=== PATIENT | female | born 1990 | race Caucasian/White ===

== ENCOUNTER 2020-09-25 09:24 | Observation (INO) | payer OTHER ==
[~2020-09-25] VITALS: Ht 157.5 cm; Wt 65.9 kg
[2020-09-25] VITALS (7 sets, daily range): BP systolic 96–105; BP diastolic 55–60
[2020-09-25] MEDS ORDERED: fentaNYL PF VIAL 100 MCG/2 ML VIAL IVP ONE ×2 (10:00→13:00)
[2020-09-25] MEDS ORDERED: IV NORMAL SALINE 1000ML BAG 1,000 ML IV SCH (10:00)
[2020-09-25] MEDS ORDERED: ONDANSETRON PF 4 MG/2 ML VIAL. IVP ONE (10:00)
--- NOTE | 2020-09-25 10:15 | PHYS DOC ---
Past Medical History Additional Past Medical Histor: HEART SHAPED UTERUS (JOSE DA SILVA TELEVISION PRODUCTION CLERK) Past Surgical History: Other Additional Past Surgical Histo: D & C, AT AGE 15 (JOSE DA SILVA TELEVISION PRODUCTION CLERK) General Adult EDM: Chief Complaint: ABDOMINAL PAIN HPI: HPI: Patient is a 30 year old female who presents with right lower quadrant sharp pain with vaginal spotting for the last couple days. She had a positive test over the weekend. Last menstrual period was August 21. She took ibuprofen yesterday and this morning to help with pain. Patient has a history of a tubal , at the age of 15, D&Cs. Miscarriage. She is on her fifth . She has 1 living child. She also has a history of a heart-shaped uterus. Denies any concerns for sexually transmitted diseases. Denies any unusual vaginal discharge besides her vaginal spotting. Patient recently moved here from [place]. Rating her pain a 10 out of 10 in her right lower quadrant. Denies urinary symptoms, concern for sexually transmitted disease, chest pain, shortness of breath, fever, constipation, diarrhea. (JOSE DA SILVA TELEVISION PRODUCTION CLERK) Review of Systems: Review of Systems: Constitutional: Denies fever or chills. [] Eyes: Denies change in visual acuity. [] HENT: Denies nasal congestion or sore throat. [] Respiratory: Denies cough or shortness of breath. [] Cardiovascular: Denies chest pain or edema. [] GI: + abdominal pain, +nausea, +vomiting, denies bloody stools or diarrhea. [] : Denies dysuria. +vaginal bleeding[] Musculoskeletal: Denies back pain or joint pain. [] Integument: Denies rash. [] Neurologic: Denies headache, focal weakness or sensory changes. [] Endocrine: Denies polyuria or polydipsia. [] Lymphatic: Denies swollen glands. [] Psychiatric: Denies depression or anxiety. [] (JOSE DA SILVA TELEVISION PRODUCTION CLERK) Heart Score: C/O Chest Pain: No Risk Factors: Risk Factors: DM, Current or recent (<one month) smoker, HTN, HLP, family history of CAD, obesity. Risk Scores: Score 0 - 3: 2.5% MACE over next 6 weeks - Discharge Home Score 4 - 6: 20.3% MACE over next 6 weeks - Admit for Clinical Observation Score 7 - 10: 72.7% MACE over next 6 weeks - Early Invasive Strategies (JOSE DA SILVA APRN) Current Medications: Current Medications Medications (Trade) Dose Ordered Sig/Priscila Start Time Stop Time Status Last Admin Dose Admin Fentanyl Citrate (Fentanyl 2ml Vial) 50 mcg 1X ONCE 09/25/20 10:00 09/25/20 10:01 DC Ondansetron HCl (Zofran) 4 mg 1X ONCE 09/25/20 10:00 09/25/20 10:01 DC Sodium Chloride 1,000 ml @ 1,000 mls/hr Q1H 09/25/20 10:00 09/25/20 10:59 (JOSE DA SILVA APRN) Allergies: Allergies: Allergies Coded Allergies Type Severity Reaction Last Updated Verified No Known Drug Allergies 09/25/20 No (JOSE DA SILVA APRN) Physical Exam: PE: Constitutional: Well developed, well nourished, no acute distress, non-toxic appearance. [] HENT: Normocephalic, atraumatic, bilateral external ears normal, oropharynx moist, no oral exudates, nose normal. [] Eyes: PERRLA, EOMI, conjunctiva normal, no discharge. [] Neck: Normal range of motion, no tenderness, supple, no stridor. [] Cardiovascular:Heart rate regular rhythm, no murmur [] Lungs & Thorax: Bilateral breath sounds clear to auscultation [] Abdomen: Bowel sounds normal, soft, right lower tenderness, no masses, no pulsatile masses. [] Skin: Warm, dry, no erythema, no rash. [] Back: No tenderness, no CVA tenderness. [] Extremities: No tenderness, no cyanosis, no clubbing, ROM intact, no edema. [] Neurologic: Alert and oriented X 3, normal motor function, normal sensory function, no focal deficits noted. [] Psychologic: Affect normal, judgement normal, mood normal. [] (JOSE DA SILVA APRN) Current Patient Data: Labs: Laboratory Tests Test 09/25/20 09:43 POC Urine HCG, Qualitative Hcg positive (Negative) Vital Signs: Vital Signs Date Time Temp Pulse Resp B/P (MAP) Pulse Ox O2 Delivery O2 Flow Rate FiO2 09/25/20 09:40 98.2 94 20 117/64 99 Room Air 98.2 (JOSE DA SILVA APRN) EKG: EKG: [] (JOSE DA SILVA APRN) Radiology/Procedures: Radiology/Procedures: [] Impression: [facility] [address] [place] [address] IMAGING REPORT Signed PATIENT: YANA MOELLER AACCOUNT: [id number] : 1990 LOCATION: ER AGE: 30 SEX: F EXAM STATUS: REG ER ORD. PHYSICIAN: JOSE DA SILVA APRN REASON: RLQ PAIN WITH +PREG TEST. HX TUBAL PROCEDURE: OB <14 WKS W/TV US OB <14 WKS +TV History: Reason: RLQ PAIN WITH +PREG TEST. HX TUBAL Comparison: None. Technique: Sonographic examination of the pelvis was performed with transabdominal and transvaginal technique. Findings: The uterus is normal in size and echogenicity, measuring 9.0 x 6.1 x 3.8 cm. The endometrial stripe measures 1.5 cm and there is no intrauterine gestational sac identified. The cervix is closed. There is a small nabothian cyst. The right ovary is normal in size and echogenicity, measuring 2.2 x 1.8 x 1.9 cm. Adjacent to the right ovary there is a mixed echogenicity 1.8 x 1.8 x 1.6 cm collection with some peripheral color Doppler flow. The left ovary is normal in size and echogenicity, measuring 3.3 x 1 2.0 x 3.2 cm. There is a small amount of simple free fluid in the pelvic cul-de-sac. Impression: Heterogeneous mixed echogenicity mass adjacent to the right ovary measuring 1.8 cm, concerning for ectopic in the setting of positive test and no identifiable intrauterine gestation. Electronically signed by: Carlos Farris MD (09/25/2020 11:05 AM) [id number] DICTATED and SIGNED BY: CARLOS FARRIS MD DATE: 09/25/20 [id number] (JOSE DA SILVA APRN) Course & Med Decision Making: Course & Med Decision Making Pertinent Labs and Imaging studies reviewed. (See chart for details) See HPI. Alert and oriented x4. Ambulatory with steady gait. Speaks in full clear sentences. Skin pink warm and dry. Vital signs within normal limits. Scant vaginal bleeding on pelvic exam. Right lower quadrant pain but there is no rebound pain but there is tenderness with palpation. Abdomen otherwise soft and nontender. Pelvic Exam: Central Station Operator present Abdomen: Right lower quadrant External Genitalia: Normal Skin Speculum: Normal vaginal mucosa, normal cervical discharge. Scant vaginal bleeding Bimanual: No adnexal masses or tenderness, No CMT US is suggestive of a Ectopic . I have called Dr Lester and he is coming to see the patient. She is admitted to Dr Lester. [] (JOSE DA SILVA APRN) Course & Med Decision Making I oversaw on the above date of service of this patient. This patient was evaluated, examined, treated, and dispositioned from the emergency department by the mid-level practitioner. I directed care of patient and advised OBGYN consult and admission. I reviewed note and agree to findings, plan of care, and disposition as stated. Critical Care Time This patient required critical care. Due to the fact that the patient required a significant amount of one on one physician - patient contact time, ordering and review of studies, arranging urgent treatment with development of a management plan, evaluation of patients response to treatment with frequent reassessments, and discussions with other providers this patient required 35 minutes of critical care time. Critical care time was indicated due to the inherent instability and/or potential for instability in this patient. The critical care time that is allocated to this patient is above and beyond any time spent on any other billable procedures performed on this patient. Electronically signed, Arielle Diaz DO (ARIELLE DIAZ DO) Ella Disclaimer: Ella Disclaimer: This electronic medical record was generated, in whole or in part, using a voice recognition dictation system. (JOSE DA SILVA APRN) Departure Departure Impression: Primary Impression: Ectopic of right ovary Dis[facility] Condition: STABLE Referrals: LEONIE SAGE MD (PCP) JOSE DA SILVA APRN Sep 25, 2020 10:14 ARIELLE DIAZ DO Sep 25, 2020 17:15
[2020-09-25 10:29] LABS: BASO % 1 % (0-3); EOS # 0.1 x10^3/uL (0.0-0.7); EOS % 1 % (0-3); HEMATOCRIT 36.1 % (36.0-47.0); HEMOGLOBIN 12.7 g/dL (12.0-15.5); LYMPH # 1.2 x10^3/uL (1.0-4.8); LYMPH % 20 % (24-48); MEAN CORPUSCULAR HEMOGLOBIN 32 pg (25-35); MEAN CORPUSCULAR HGB CONC 35 g/dL (31-37); MEAN CORPUSCULAR VOLUME 90 fL (79-100); MONO # 0.4 x10^3/uL (0.0-1.1); MONO % 7 % (0-9); NEUT # 4.2 x10^3/uL (1.8-7.7); NEUT % 71 % (31-73); PLATELET COUNT 265 x10^3/uL (140-400); RED CELL DISTRIBUTION WIDTH 12.5 % (11.5-14.5)
[2020-09-25 10:29] LABS: BILIRUBIN,URINE NEGATIVE (NEG); CLARITY,URINE CLOUDY; COLOR,URINE YELLOW; NITRITE,URINE NEGATIVE (NEG); PH,URINE 5.5 (<5.0-8.0); PROTEIN,URINE NEGATIVE (NEG-TRACE); UROBILINOGEN,URINE 0.2 mg/dL (0.2 mg/dL)
[2020-09-25 10:39] LABS: CALCIUM 8.5 mg/dL (8.5-10.1); CREATININE 0.7 mg/dL (0.6-1.0); GFR 97.6; POTASSIUM 3.9 mmol/L (3.5-5.1)
[2020-09-25 10:39] LABS: BACTERIA,URINE MANY /HPF (0-FEW)
[2020-09-25 10:45] LABS: ALBUMIN 3.7 g/dL (3.4-5.0); ALBUMIN/GLOBULIN RATIO 1.2 (1.0-1.7); TOTAL BILIRUBIN 0.4 mg/dL (0.2-1.0); TOTAL PROTEIN 6.8 g/dL (6.4-8.2)
--- NOTE | 2020-09-25 11:07 | RAD ---
US OB <14 WKS +TV History: Reason: RLQ PAIN WITH +PREG TEST. HX TUBAL Comparison: None. Technique: Sonographic examination of the pelvis was performed with transabdominal and transvaginal t echnique. Findings: The uterus is normal in size and echogenicity, measuring 9.0 x 6.1 x 3.8 cm. The endometrial stripe measures 1.5 cm and there is no intrauterine gestational sac identified. The c ervix is closed. There is a small nabothian cyst. The right ovary is normal in size and echogenicity, measuring 2.2 x 1.8 x 1.9 cm. Adjacent to the rig ht ovary there is a mixed echogenicity 1.8 x 1.8 x 1.6 cm collection with some peripheral color Doppl er flow. The left ovary is normal in size and echogenicity, measuring 3.3 x 1 2.0 x 3.2 cm. There is a small amount of simple free fluid in the pelvic cul-de-sac. Impression: Heterogeneous mixed echogenicity mass adjacent to the right ovary measuring 1.8 cm, concerning for ec topic in the setting of positive test and no identifiable intrauterine gestation. Electronically signed by: Carlos Grimes MD (09/25/2020 11:05 AM) [id number]
[2020-09-25 12:32] LABS: PROTHROMBIN TIME PATIENT 12.6 SEC (11.7-14.0)
[2020-09-25] MEDS ORDERED: BUPIVACAINE-EPI 0.25%-1:200000 MPF 30 ML VIAL. ONE (12:37)
[2020-09-25] MEDS ORDERED: fentaNYL PF VIAL 100 MCG/2 ML VIAL ONE ×3 (12:37→15:07)
[2020-09-25] MEDS ORDERED: SURGICEL HEMOSTAT 4X8 EACH. ONE (12:37)
[2020-09-25] MEDS ORDERED: ROCURONIUM 50 MG/5 ML VIAL. ONE (13:14)
[2020-09-25] MEDS ORDERED: MIDAZOLAM HCL/PF 2 MG/2 ML VIAL. ONE (13:15)
[2020-09-25] MEDS ORDERED: DEXAMETHASONE SOD PHOS 4 MG/ML VIAL ONE (13:16)
[2020-09-25] MEDS ORDERED: PROPOFOL 10 MG/ML (20ML) VIAL. IV ONE (13:16)
[2020-09-25] MEDS ORDERED: ONDANSETRON PF 4 MG/2 ML VIAL. ONE (13:16)
[2020-09-25] MEDS ORDERED: LIDOCAINE 2% PF 5 ML VIAL. ONE (13:16)
[2020-09-25] MEDS ORDERED: SEVOFLURANE 61 TO 120 MINUTES. IH ONE (13:16)
[2020-09-25] MEDS ORDERED: ceFAZolin SODIUM IV Push 1 GM VIAL. IVP ONE (13:33)
[2020-09-25] MEDS ORDERED: ceFAZolin SODIUM IV Push 1 GM VIAL. IVP PRN (13:45)
[2020-09-25] MEDS ORDERED: GLYCOPYRROLATE 1 MG/5 ML VIAL. ONE (14:08)
[2020-09-25] MEDS ORDERED: SUGAMMADEX SODIUM 200 MG/2 ML VIAL. IVP ONE (14:15)
[2020-09-25] MEDS ORDERED: KETOROLAC 30 MG/ML VIAL. ONE (14:22)
--- NOTE | 2020-09-25 14:31 | PDOC ---
BRIEF OPERATIVE NOTE Date: Sep 25, 2020 Pre-Op Diagnosis Right Ectopic Post-Op Diagnosis Same Procedure Performed [facility] Right Salpingectomy Surgeon Dr. Lester Anesthesia Type: General Blood Loss 10 ml Specimens Obtained Right fallopian tube with ectopic Findings Right ectopic within Right fallopian tube with bleeding;nml Left fallopian tube and moi. ovaries nml Complications none Operative Note see dictation PALMER LESTER Jr, MD Sep 25, 2020 14:31
[2020-09-25] MEDS ORDERED: PROCHLORPERAZINE 10 MG/2 ML VIAL. IVP PRN (14:45)
[2020-09-25] MEDS ORDERED: CALCIUM CARBONATE 500 MG TAB.CHEW PO PRN (14:45)
[2020-09-25] MEDS ORDERED: MORPHINE SULFATE 2 MG/ML INJ. IVP PRN (14:45)
[2020-09-25] MEDS ORDERED: HYDROmorphone 2 MG/ML VIAL IVP PRN (14:45)
[2020-09-25] MEDS ORDERED: ZOLPIDEM 5 MG TABLET. PO PRN (14:45)
[2020-09-25] MEDS ORDERED: PROCHLORPERAZINE 10 MG/2 ML VIAL. IV PRN (14:45)
[2020-09-25] MEDS ORDERED: DEXTROSE 50% 25 GM / 50ML DISP.SYRIN. IV PRN (14:45)
[2020-09-25] MEDS ORDERED: ONDANSETRON PF 4 MG/2 ML VIAL. IV PRN (14:45)
[2020-09-25] MEDS ORDERED: diphenhydrAMINE 50 MG/ML VIAL IV PRN (14:45)
[2020-09-25] MEDS ORDERED: fentaNYL PF VIAL 100 MCG/2 ML VIAL IVP PRN (14:45)
[2020-09-25] MEDS ORDERED: diphenhydrAMINE HCL 25 MG CAPSULE PO PRN (14:45)
[2020-09-25] MEDS ORDERED: KETOROLAC 30 MG/ML VIAL. IV PRN (14:45)
[2020-09-25] MEDS ORDERED: IV RINGERS,LACTATED 1000ML 1,000 ML IV SCH (14:45)
[2020-09-25] MEDS ORDERED: 0.9 % SODIUM CHLORIDE 10 ML DISP.SYRIN. IV PRN (14:45)
[2020-09-25] MEDS ORDERED: SIMETHICONE 80 MG TAB.CHEW PO PRN (14:45)
--- NOTE | 2020-09-25 14:55 | OP ---
DATE OF SURGERY: 09/25/2020 PREOPERATIVE DIAGNOSIS: Right ectopic . POSTOPERATIVE DIAGNOSIS: Right ectopic . PROCEDURE: Laparoscopic right salpingectomy. SURGEON: Cristofer Lester MD ANESTHESIA: GETA. ESTIMATED BLOOD LOSS: 10 mL. COMPLICATIONS: None. FINDINGS: Right ectopic within the right fallopian tube with bleeding. Normal left fallopian tube, normal bilateral ovaries. Small amount of blood in the cul-de-sac. SUMMARY: The patient is a 30-year-old female who had right lower quadrant pain continued to worsen. She was found to have ectopic in right fallopian tube. Counseled on risks, benefits and expectations of laparoscopic right salpingectomy with possible salpingo-oophorectomy and voiced clear understanding to proceed. DESCRIPTION OF PROCEDURE: The patient was taken to surgery suite and placed in dorsal lithotomy position, was prepped with abdominal prep and Betadine for vaginal prep and draped in a sterile fashion. After adequate anesthesia, bivalve speculum was placed vaginally. Anterior lip of the cervix grasped with single tooth tenaculum. Uterine acorn manipulator was then placed. The bivalve speculum was removed. Attention was now placed on abdomen. Small transverse skin incision was made just below the umbilicus with a scalpel. A Veress needle was then placed through the infraumbilical incision site. The abdomen was allowed to insufflate up to 1.5 liters of CO2 gas. The Veress needle was then removed. A 5 mm trocar was placed. Scope was positioned. There was a small amount of blood in the posterior cul-de-sac. The left fallopian tube and ovary appeared normal. Right ovary appeared normal. Right fallopian tube containing the ectopic . Two additional incisions were made in the left lower quadrant with a 5 mm trocar and an 11 mm trocar was placed with aid of [place] graspers, the right fallopian tube was dissected away from the right adnexa and removed in the Endobag. Suction irrigation was utilized to verify good hemostasis. A small amount of normal saline was left in posterior cul-de-sac. The scope was removed under direct visualization. Abdomen was allowed to deflate as much as possible along with mechanical manipulation. The 11 mm port site was closed at the fascial layer using 2-0 Vicryl suture in [id number] manner. The three skin incisions were closed at the skin level using 4-0 Vicryl suture in subcuticular manner. A 0.25% Marcaine with epinephrine was injected at each incision site. The uterine acorn manipulator and single tooth tenaculum were removed. The patient tolerated the procedure well and was taken to recovery room in stable condition. Sponge and needle count correct x 3. AYESHA DR: Stephy TID: [id number]
[2020-09-25] MEDS ORDERED: PROCHLORPERAZINE 10 MG/2 ML VIAL. ONE (15:09)
[2020-09-25] MEDS: fentaNYL PF VIAL 100 MCG/2 ML VIAL IVP PRN ×2 (15:20→16:00)
[2020-09-25] MEDS: oxyCODONE/APAP 5/325 1 TAB TABLET PO PRN (18:54)
[2020-09-25] MEDS: GABAPENTIN 300 MG CAPSULE. PO SCH (22:18)
[2020-09-26 00:09] VITALS: BP 91/50
[2020-09-26 05:41] LABS: BASO % 0 % (0-3); EOS % 0 % (0-3); HEMOGLOBIN 11.2 g/dL (12.0-15.5); LYMPH # 1.4 x10^3/uL (1.0-4.8); LYMPH % 14 % (24-48); MEAN CORPUSCULAR HEMOGLOBIN 31 pg (25-35); MEAN CORPUSCULAR HGB CONC 34 g/dL (31-37); MEAN CORPUSCULAR VOLUME 92 fL (79-100); MONO # 0.5 x10^3/uL (0.0-1.1); MONO % 5 % (0-9); NEUT # 8.1 x10^3/uL (1.8-7.7); NEUT % 80 % (31-73); PLATELET COUNT 250 x10^3/uL (140-400); RED BLOOD COUNT 3.59 x10^6/uL (3.50-5.40); RED CELL DISTRIBUTION WIDTH 12.8 % (11.5-14.5)
[2020-09-26] MEDS: oxyCODONE/APAP 5/325 1 TAB TABLET PO PRN ×2 (05:53→09:21)
[2020-09-26] MEDS: GABAPENTIN 300 MG CAPSULE. PO SCH (06:15)
[2020-09-26 06:21] VITALS: BP 121/67
--- NOTE | 2020-09-26 08:39 | PDOC ---
SURGICAL PROGRESS NOTE DATE: 09/26/20 TIME: 08:37 Subjective Pt. feeling well. Pain controlled. No complaints. Vital Signs Vital Signs Date Time Temp Pulse Resp B/P (MAP) Pulse Ox O2 Delivery O2 Flow Rate FiO2 09/26/20 06:21 98.4 63 121/67 (85) 98.4 09/26/20 05:53 20 Room Air 09/26/20 00:09 99 09/25/20 14:53 10 I&O Intake and Output 09/26/20 07:00 Intake Total 1250 ml Output Total 10 ml Balance 1240 ml Intake Oral 50 ml IV Total 1200 ml Output Estimated Blood Loss 10 ml # Voids 4 General: Alert, Oriented X3, Cooperative HEENT: Atraumatic Lungs: Clear to auscultation Heart: Regular rate Abdomen: Normal bowel sounds, Soft, No tenderness, No masses Extremities: No edema Neuro: Normal gait Psych/Mental Status: Mental status NL Labs Laboratory Tests Test 09/25/20 09:30 09/25/20 09:43 09/25/20 10:00 09/25/20 11:30 Urine Collection Type Unknown Urine Color Yellow Urine Clarity Cloudy Urine pH 5.5 (<5.0-8.0) Urine Specific Kell 1.025 (1.000-1.030) Urine Protein Negative mg/dL (NEG-TRACE) Urine Glucose (UA) Negative mg/dL (NEG) Urine Ketones (Stick) Negative mg/dL (NEG) Urine Blood Large (NEG) Urine Nitrite Negative (NEG) Urine Bilirubin Negative (NEG) Urine Urobilinogen Dipstick 0.2 mg/dL (0.2 mg/dL) Urine Leukocyte Esterase Moderate (NEG) Urine RBC 3-5 /HPF (0-2) Urine WBC 11-20 /HPF (0-4) Urine Squamous Epithelial Cells Many /LPF Urine Bacteria Many /HPF (0-FEW) Urine Mucus Marked /LPF Bedside Urine HCG, Qualitative Hcg positive (Negative) White Blood Count 6.0 x10^3/uL (4.0-11.0) Red Blood Count 4.00 x10^6/uL (3.50-5.40) Hemoglobin 12.7 g/dL (12.0-15.5) Hematocrit 36.1 % (36.0-47.0) Mean Corpuscular Volume 90 fL (79-100) Mean Corpuscular Hemoglobin 32 pg (25-35) Mean Corpuscular Hemoglobin Concent 35 g/dL (31-37) Red Cell Distribution Width 12.5 % (11.5-14.5) Platelet Count 265 x10^3/uL (140-400) Neutrophils (%) (Auto) 71 % (31-73) Lymphocytes (%) (Auto) 20 % (24-48) Monocytes (%) (Auto) 7 % (0-9) Eosinophils (%) (Auto) 1 % (0-3) Basophils (%) (Auto) 1 % (0-3) Neutrophils # (Auto) 4.2 x10^3/uL (1.8-7.7) Lymphocytes # (Auto) 1.2 x10^3/uL (1.0-4.8) Monocytes # (Auto) 0.4 x10^3/uL (0.0-1.1) Eosinophils # (Auto) 0.1 x10^3/uL (0.0-0.7) Basophils # (Auto) 0.0 x10^3/uL (0.0-0.2) Maternal Serum HCG Beta Subunit 2192 mIU/mL (0-5) Sodium Level 140 mmol/L (136-145) Potassium Level 3.9 mmol/L (3.5-5.1) Chloride Level 106 mmol/L (98-107) Carbon Dioxide Level 23 mmol/L (21-32) Anion Gap 11 (6-14) Blood Urea Nitrogen 10 mg/dL (7-20) Creatinine 0.7 mg/dL (0.6-1.0) Estimated GFR (Cockcroft-Gault) 97.6 BUN/Creatinine Ratio 14 (6-20) Glucose Level 92 mg/dL (70-99) Calcium Level 8.5 mg/dL (8.5-10.1) Total Bilirubin 0.4 mg/dL (0.2-1.0) Aspartate Amino Transf (AST/SGOT) 15 U/L (15-37) Alanine Aminotransferase (ALT/SGPT) 19 U/L (14-59) Alkaline Phosphatase 52 U/L (46-116) Total Protein 6.8 g/dL (6.4-8.2) Albumin 3.7 g/dL (3.4-5.0) Albumin/Globulin Ratio 1.2 (1.0-1.7) SARS-CoV-2 RNA (HERBERTH) Negative (Negative) SARS-CoV-2 Antigen (Rapid) Negative (NEGATIVE) Test 09/25/20 11:59 09/26/20 05:15 Prothrombin Time 12.6 SEC (11.7-14.0) Prothromb Time International Ratio 0.9 (0.8-1.1) White Blood Count 10.0 x10^3/uL (4.0-11.0) Red Blood Count 3.59 x10^6/uL (3.50-5.40) Hemoglobin 11.2 g/dL (12.0-15.5) Hematocrit 33.0 % (36.0-47.0) Mean Corpuscular Volume 92 fL (79-100) Mean Corpuscular Hemoglobin 31 pg (25-35) Mean Corpuscular Hemoglobin Concent 34 g/dL (31-37) Red Cell Distribution Width 12.8 % (11.5-14.5) Platelet Count 250 x10^3/uL (140-400) Neutrophils (%) (Auto) 80 % (31-73) Lymphocytes (%) (Auto) 14 % (24-48) Monocytes (%) (Auto) 5 % (0-9) Eosinophils (%) (Auto) 0 % (0-3) Basophils (%) (Auto) 0 % (0-3) Neutrophils # (Auto) 8.1 x10^3/uL (1.8-7.7) Lymphocytes # (Auto) 1.4 x10^3/uL (1.0-4.8) Monocytes # (Auto) 0.5 x10^3/uL (0.0-1.1) Eosinophils # (Auto) 0.0 x10^3/uL (0.0-0.7) Basophils # (Auto) 0.0 x10^3/uL (0.0-0.2) Laboratory Tests Test 09/25/20 09:30 09/25/20 09:43 09/25/20 10:00 09/25/20 11:30 Urine Collection Type Unknown Urine Color Yellow Urine Clarity Cloudy Urine pH 5.5 (<5.0-8.0) Urine Specific Kell 1.025 (1.000-1.030) Urine Protein Negative mg/dL (NEG-TRACE) Urine Glucose (UA) Negative mg/dL (NEG) Urine Ketones (Stick) Negative mg/dL (NEG) Urine Blood Large (NEG) Urine Nitrite Negative (NEG) Urine Bilirubin Negative (NEG) Urine Urobilinogen Dipstick 0.2 mg/dL (0.2 mg/dL) Urine Leukocyte Esterase Moderate (NEG) Urine RBC 3-5 /HPF (0-2) Urine WBC 11-20 /HPF (0-4) Urine Squamous Epithelial Cells Many /LPF Urine Bacteria Many /HPF (0-FEW) Urine Mucus Marked /LPF Bedside Urine HCG, Qualitative Hcg positive (Negative) White Blood Count 6.0 x10^3/uL (4.0-11.0) Red Blood Count 4.00 x10^6/uL (3.50-5.40) Hemoglobin 12.7 g/dL (12.0-15.5) Hematocrit 36.1 % (36.0-47.0) Mean Corpuscular Volume 90 fL (79-100) Mean Corpuscular Hemoglobin 32 pg (25-35) Mean Corpuscular Hemoglobin Concent 35 g/dL (31-37) Red Cell Distribution Width 12.5 % (11.5-14.5) Platelet Count 265 x10^3/uL (140-400) Neutrophils (%) (Auto) 71 % (31-73) Lymphocytes (%) (Auto) 20 % (24-48) Monocytes (%) (Auto) 7 % (0-9) Eosinophils (%) (Auto) 1 % (0-3) Basophils (%) (Auto) 1 % (0-3) Neutrophils # (Auto) 4.2 x10^3/uL (1.8-7.7) Lymphocytes # (Auto) 1.2 x10^3/uL (1.0-4.8) Monocytes # (Auto) 0.4 x10^3/uL (0.0-1.1) Eosinophils # (Auto) 0.1 x10^3/uL (0.0-0.7) Basophils # (Auto) 0.0 x10^3/uL (0.0-0.2) Maternal Serum HCG Beta Subunit 2192 mIU/mL (0-5) Sodium Level 140 mmol/L (136-145) Potassium Level 3.9 mmol/L (3.5-5.1) Chloride Level 106 mmol/L (98-107) Carbon Dioxide Level 23 mmol/L (21-32) Anion Gap 11 (6-14) Blood Urea Nitrogen 10 mg/dL (7-20) Creatinine 0.7 mg/dL (0.6-1.0) Estimated GFR (Cockcroft-Gault) 97.6 BUN/Creatinine Ratio 14 (6-20) Glucose Level 92 mg/dL (70-99) Calcium Level 8.5 mg/dL (8.5-10.1) Total Bilirubin 0.4 mg/dL (0.2-1.0) Aspartate Amino Transf (AST/SGOT) 15 U/L (15-37) Alanine Aminotransferase (ALT/SGPT) 19 U/L (14-59) Alkaline Phosphatase 52 U/L (46-116) Total Protein 6.8 g/dL (6.4-8.2) Albumin 3.7 g/dL (3.4-5.0) Albumin/Globulin Ratio 1.2 (1.0-1.7) SARS-CoV-2 RNA (HERBERTH) Negative (Negative) SARS-CoV-2 Antigen (Rapid) Negative (NEGATIVE) Test 09/25/20 11:59 09/26/20 05:15 Prothrombin Time 12.6 SEC (11.7-14.0) Prothromb Time International Ratio 0.9 (0.8-1.1) White Blood Count 10.0 x10^3/uL (4.0-11.0) Red Blood Count 3.59 x10^6/uL (3.50-5.40) Hemoglobin 11.2 g/dL (12.0-15.5) Hematocrit 33.0 % (36.0-47.0) Mean Corpuscular Volume 92 fL (79-100) Mean Corpuscular Hemoglobin 31 pg (25-35) Mean Corpuscular Hemoglobin Concent 34 g/dL (31-37) Red Cell Distribution Width 12.8 % (11.5-14.5) Platelet Count 250 x10^3/uL (140-400) Neutrophils (%) (Auto) 80 % (31-73) Lymphocytes (%) (Auto) 14 % (24-48) Monocytes (%) (Auto) 5 % (0-9) Eosinophils (%) (Auto) 0 % (0-3) Basophils (%) (Auto) 0 % (0-3) Neutrophils # (Auto) 8.1 x10^3/uL (1.8-7.7) Lymphocytes # (Auto) 1.4 x10^3/uL (1.0-4.8) Monocytes # (Auto) 0.5 x10^3/uL (0.0-1.1) Eosinophils # (Auto) 0.0 x10^3/uL (0.0-0.7) Basophils # (Auto) 0.0 x10^3/uL (0.0-0.2) Problem List Problems Medical Problems: (1) Ectopic of right ovary Status: Acute Assessment/Plan A: POD#1 s/p LPSC Right Salpingectomy for ectopic P: D/c home. Justicifation of Admission Dx: Justifications for Admission: Justification of Admission Dx: Yes PALMER METCALF Jr, MD Sep 26, 2020 08:39
--- NOTE | 2020-09-26 08:40 | DISCH ---
DISCHARGE INSTRUCTIONS Condition on Discharge Condition on Discharge: Stable Activity After Discharge Activity Instructions for Disc: Activity as tolerated Lifting Instructions after Dis: No heavy lifting Driving Instructions after Dis: Do not drive today Diet after Discharge Diet after Discharge: Regular Contacting the DRReggie after DC Call your doctor for: Concerns you may have Follow-Up Follow up with: Dr. Lester in 1 week PALMER LESTER Jr, MD Sep 26, 2020 08:40
[2020-09-26] MEDS ORDERED: IBUP-1060 PO (08:41)
[2020-09-26] MEDS ORDERED: OXYC1TAB15 PO (08:41)
[2020-09-26 11:30] VITALS: BP 129/67
[2020-09-27 01:09] LABS: GC PROBE Negative (Negative)
== END 2020-09-26 11:30 | disposition home or self-care (01) ==
LOC: ER 09:24 → 3 SO LND 11:29 → INTOOBSV 11:29
PROVIDERS: ADMIT Obstetrics & Gynecology; ATTEND Obstetrics & Gynecology
DX: O26.851 Spotting complicating pregnancy, first trimester (principal); Z20.822 Contact with and (suspected) exposure to COVID-19; O00.201 Right ovarian pregnancy without intrauterine pregnancy; Z79.899 Other long term (current) drug therapy; Z98.890 Other specified postprocedural states; Z3A.01 Less than 8 weeks gestation of pregnancy
CPT/HCPCS: 36415; 59151; 76801; 76817; 80053; 81001; 81025; 84702; 85025; 85610; 86850; 86900; 86901; 87086; 87426; 87491; 87591; 96361; 96374; 96375; 99291; A4930; A6219; G0378; J0690; J0780; J1100; J1885; J2250; J2405; J2704; J3010; J3490; J7030; J7120; Q0111; U0003; U0005; G0379